=== PATIENT | female | born 1980 | race Caucasian/White ===

== ENCOUNTER → 2019-06-24 | Emergency (ER) | payer OTHER ==
[~2019-06-24] VITALS: Ht 157.5 cm; Wt 58.1 kg
== END | disposition home or self-care (01) ==
LOC: ER 11:26
DX: J35.01 Chronic tonsillitis (principal); R50.9 Fever, unspecified

== ENCOUNTER 2019-09-06 12:30 | Inpatient (IN) | payer OTHER ==
[~2019-09-06] VITALS: Ht 157.5 cm; Wt 54.4 kg
[2019-09-06] MEDS ORDERED: URIN D.S. TABL1 EACH PO (12:44)
[2019-09-06] MEDS ORDERED: BACTRIM DS TAB1 EACH (12:45)
[2019-09-18] MEDS ORDERED: ACETAMINOPHEN500 M2 PO (10:01)
== END 2019-09-18 12:52 | disposition home or self-care (01) | DRG 373 ==
LOC: ER 12:30 → SURH 20:23
PROVIDERS: ADMIT Surgery
PROC: BW21YZZ Computerized Tomography (CT Scan) of Abdomen and Pelvis using Other Contrast (ICD-10-PCS; 2019-09-06)
PROC: 3E0336Z Introduction of Nutritional Substance into Peripheral Vein, Percutaneous Approach (ICD-10-PCS; 2019-09-07)
PROC: BW21Y0Z Computerized Tomography (CT Scan) of Abdomen and Pelvis using Other Contrast, Unenhanced and Enhanced (ICD-10-PCS; 2019-09-10)
PROC: 0J9C30Z Drainage of Pelvic Region Subcutaneous Tissue and Fascia with Drainage Device, Percutaneous Approach (ICD-10-PCS; principal; 2019-09-11)
PROC: 05HY33Z Insertion of Infusion Device into Upper Vein, Percutaneous Approach (ICD-10-PCS; 2019-09-11)
DX: K35.33 Acute appendicitis with perforation, localized peritonitis, and gangrene, with abscess (principal); R10.31 Right lower quadrant pain; B96.29 Other Escherichia coli [E. coli] as the cause of diseases classified elsewhere; B96.4 Proteus (mirabilis) (morganii) as the cause of diseases classified elsewhere

== ENCOUNTER 2019-11-03 10:34 | Outpatient (CLI) | payer OTHER ==
[~2019-11-03 10:34] MED LIST: ACETAMINOPHEN500 M2 PO; BACTRIM DS TAB1 EACH; URIN D.S. TABL1 EACH PO
== END 2019-11-03 15:00 | disposition home or self-care (01) ==
LOC: LAB 10:34
PROVIDERS: ATTEND Surgery
DX: R10.84 Generalized abdominal pain (principal)

== ENCOUNTER 2019-11-09 09:58 | Outpatient (CLI) | payer OTHER | END 2019-11-09 10:09 | disposition home or self-care (01) | LOC: TOM 09:58 | PROVIDERS: ATTEND Surgery | DX: K35.20 Acute appendicitis with generalized peritonitis, without abscess (principal); R10.31 Right lower quadrant pain ==